=== PATIENT | female | born 2000 ===

== ENCOUNTER 2021-11-22 15:08 | Emergency (ER) | payer SELFPAY ==
--- NOTE | 2021-11-22 16:23 | Emergency Department Report ---
ED Female HPI - General Chief complaint: Vaginal Bleeding Stated complaint: 15WEEKS /BLEEDING Time Seen by Provider: 11/22/21 16:06 Source: patient, RN notes reviewed Mode of arrival: Ambulatory Limitations: No Limitations - History of Present Illness Initial comments: The patient was evaluated in the emergency department for symptoms described in the history of present illness. He/she was evaluated in the context of the global COVID-19 pandemic, which necessitated consideration that the patient might be at risk for infection with the virus that causes COVID-19. Institutional protocols and algorithms that pertain to the evaluation of patients at risk for COVID-19 are in a state of rapid change based on information released by regulatory bodies including the CDC and federal and state organizations. These policies and algorithms were followed during the patient's care in the emergency department. Please note that these policies, procedures and recommendations changed on a rapid basis. During the history and physical examination, I am chaperoned by VIOLETTA CARRION The patient is a 21-year-old female. She believes that she is approximately 15 weeks , and reports that her last menstrual period was sometime in July 2021. Including today, this is her third lifetime , she has martines ccessfully delivered once, and had 1 miscarriage. Today, she presents to the ER with a day and a half of spotting, associate with lower abdominal cramping. She denies trauma, and she denies additional symptoms. She does not currently have an outpatient [facility] physician. She has not used a significant amount of pads today. She has no other injuries or complaints MD Complaint: vaginal bleeding -: Gradual, days(s) Severity: moderate Quality: cramping Consistency: intermittent Improves with: none Worsens with: none Are you Now?: Yes Associated Symptoms: vaginal bleeding - Related Data Sexually active: Yes Previous Rx's Medication Instructions Recorded Last Taken Type Doxylamine Succinate/Vit B6 1 each PO QHS PRN #30 tablet. 11/22/21 Unknown Rx [Anne Ramirez 10-10 mg Tablet] Kerry Root [Kerry] 250 mg PO QID PRN #30 capsule 11/22/21 Unknown Rx Nitrofurantoin Lamb/M-Cryst 100 mg PO Q12HR #14 capsule 11/22/21 Unknown Rx [Macrobid CAP] Vit-Fe Fumar-FA [ 1 tab PO QDAY #30 tablet 11/22/21 Unknown Rx Vitamin] Allergies Allergy/AdvReac Type Severity Reaction Status Date / Time No Known Allergies Allergy Unverified 11/22/21 15:33 ED Review of Systems ROS: Stated complaint: 15WEEKS /BLEEDING Other details as noted in HPI Comment: All other systems reviewed and negative Genitourinary: as per HPI, other (Vaginal spotting) ED Past Medical Hx - Medications Home Medications: Home Medications Medication Instructions Recorded Confirmed Last Taken Type Doxylamine Succinate/Vit B6 1 each PO QHS PRN #30 tablet. 11/22/21 Unknown Rx [Diclegis Dr 10-10 mg Tablet] Kerry Root [Kerry] 250 mg PO QID PRN #30 capsule 11/22/21 Unknown Rx Nitrofurantoin Lamb/M-Cryst 100 mg PO Q12HR #14 capsule 11/22/21 Unknown Rx [Macrobid CAP] Vit-Fe Fumar-FA [ 1 tab PO QDAY #30 tablet 11/22/21 Unknown Rx Vitamin] ED Physical Exam - General Limitations: No Limitations General appearance: alert, in no apparent distress - Head Head exam: Present: atraumatic, normocephalic - Eye Eye exam: Present: normal appearance, EOMI. Absent: nystagmus - ENT ENT exam: Present: normal exam, normal orophraynx, mucous membranes moist, normal external ear exam - Neck Neck exam: Present: normal inspection, full ROM. Absent: tenderness, meningismus - Respiratory Respiratory exam: Present: normal lung sounds bilaterally. Absent: respiratory distress, wheezes, rales, rhonchi, stridor, decreased breath sounds - Cardiovascular Cardiovascular Exam: Present: regular rate, normal rhythm, normal heart sounds. Absent: bradycardia, tachycardia, irregular rhythm, systolic murmur, diastolic murmur, rubs, gallop - GI/Abdominal GI/Abdominal exam: Present: soft, normal bowel sounds. Absent: distended, tenderness, guarding, rebound, rigid, pulsatile mass - External exam: Present: normal external exam, other (Chaperoned by VIOLETTA CARRION). Absent: erythema, swelling, lesions, lacerations, bleeding - Extremities Exam Extremities exam: Present: normal inspection, full ROM, other (2+ pulses noted in the bilateral upper and lower extremities. There is no palpable cord. negative Homans sign. Muscular compartments are soft. The pelvis is stable.). Absent: pedal edema, calf tenderness - Back Exam Back exam: Present: normal inspection, full ROM. Absent: tenderness, CVA tenderness (R), CVA tenderness (L), paraspinal tenderness, vertebral tenderness - Neurological Exam Neurological exam: Present: alert, oriented X3, normal gait, other (No facial droop. Tongue midline. Extraocular movements intact bilaterally. Facial sensation intact to light touch in V1, V2, V3 distribution bilaterally. 5 and a 5 strength in 4 extremities. Sensation intact to light touch in 4 extremit ies.). Absent: motor sensory deficit - Psychiatric Psychiatric exam: Present: normal affect, normal mood - Skin Skin exam: Present: warm, dry, intact, normal color. Absent: rash ED Course Vital Signs 11/22/21 15:33 Temperature 98.7 F Pulse Rate 108 H Respiratory 16 Rate Blood Pressure 118/55 [Right] O2 Sat by Pulse 100 Oximetry - Reevaluation(s) Reevaluation #1: 11/22/21 17:13 Differential diagnosis, including but not limited to: Miscarriage, ectopic , subchorionic bleed, bacteriuria Assessment and plan: 21-year-old female, who is afebrile, with reassuring vital signs, with resolved tachycardia on my exam, with soft benign abdomen, without rebound, guarding or peritoneal signs, presenting today with a complaint that she is with vaginal spotting. Check appropriate laboratory studies, urinalysis, and obstetrics ultrasound. Reassess after acquisition of initial diagnostic studies. I discussed this with the patient. She is agreeable to this plan of care 11/22/21 18:14 Patient in no acute distress. Urinalysis demonstrates bacteriuria with pyuria. Patient is Rh+. Ultrasound confirms 16-week intrauterine . Discharged with outpatient follow-up Start vitamins, Macrobid, outpatient [facility]CH[facility] INFORMATION SPECIALIST follow-up. ED Medical Decision Making - Lab Data Result diagrams: 11/22/21 16:45 Vital Signs 11/22/21 15:33 Temperature 98.7 F Pulse Rate 108 H Respiratory 16 Rate Blood Pressure 118/55 [Right] O2 Sat by Pulse 100 Oximetry Lab Results 11/22/21 Range/Units 16:45 WBC 8.0 (4.5-11.0) K/mm3 RBC 4.06 (3.65-5.03) M/mm3 Hgb 12.2 (10.1-14.3) gm/dl Hct 36.0 (30.3-42.9) % MCV 89 (79-97) fl MCH 30 (28-32) pg MCHC 34 (30-34) % RDW 13.0 L (13.2-15.2) % Plt Count 289 (140-440) K/mm3 Lab Results 11/22/21 11/22/21 11/22/21 Range/Units 16:45 16:45 16:45 WBC 8.0 (4.5-11.0) K/mm3 RBC 4.06 (3.65-5.03) M/mm3 Hgb 12.2 (10.1-14.3) gm/dl Hct 36.0 (30.3-42.9) % MCV 89 (79-97) fl MCH 30 (28-32) pg MCHC 34 (30-34) % RDW 13.0 L (13.2-15.2) % Plt Count 289 (140-440) K/mm3 HCG, Quant 51582 H (0-4) mIU/mL Urine Color (Yellow) Urine Turbidity (Clear) Urine pH (5.0-7.0) Ur Specific [place] (1.003-1.030) Urine Protein (Negative) mg/dL Urine Glucose (UA) (Negative) mg/dL Urine Ketones (Negative) mg/dL Urine Blood (Negative) Urine Nitrite (Negative) Urine Bilirubin (Negative) Urine Urobilinogen (<2.0) mg/dL Ur Leukocyte Esterase (Negative) Urine WBC (Auto) (0.0-6.0) /HPF Urine RBC (Auto) (0.0-6.0) /HPF U Epithel Cells (Auto) (0-13.0) /HPF Urine Bacteria (Auto) (Negative) /HPF Urine Mucus /HPF Urine Yeast (Budding) /HPF Blood Type O POSITIVE Antibody Screen Negative 11/22/21 Range/Units Unknown WBC (4.5-11.0) K/mm3 RBC (3.65-5.03) M/mm3 Hgb (10.1-14.3) gm/dl Hct (30.3-42.9) % MCV (79-97) fl MCH (28-32) pg MCHC (30-34) % RDW (13.2-15.2) % Plt Count (140-440) K/mm3 HCG, Quant (0-4) mIU/mL Urine Color Yellow (Yellow) Urine Turbidity Clear (Clear) Urine pH 6.0 (5.0-7.0) Ur Specific [place] 1.019 (1.003-1.030) Urine Protein <15 mg/dl (Negative) mg/dL Urine Glucose (UA) Neg (Negative) mg/dL Urine Ketones Neg (Negative) mg/dL Urine Blood Lg (Negative) Urine Nitrite Neg (Negative) Urine Bilirubin Neg (Negative) Urine Urobilinogen < 2.0 (<2.0) mg/dL Ur Leukocyte Esterase Sm (Negative) Urine WBC (Auto) 37.0 H (0.0-6.0) /HPF Urine RBC (Auto) 8.0 (0.0-6.0) /HPF U Epithel Cells (Auto) 2.0 (0-13.0) /HPF Urine Bacteria (Auto) 1+ (Negative) /HPF Urine Mucus Few /HPF Urine Yeast (Budding) Few /HPF Blood Type Antibody Screen - Radiology Data Radiology results: report reviewed, image reviewed ULTRASOUND OBSTETRIC COMPLETE INDICATION / CLINICAL INFORMATION: Lower abdominal cramping. Clinical Gestational Age (GA) in weeks.days: 15.3 TECHNIQUE: Transabdominal. COMPARISON: None available. FINDINGS: NUMBER: Single PRESENTATION: cephalic PLACENTA: anterior and free of the os. MATERNAL ADNEXA: No significant abnormality. AMNIOTIC FLUID VOLUME: normal AMNIOTIC FLUID INDEX (YESSY) in cm (if measured): Not measured ANATOMY: organs (including the bladder, stomach, kidneys, heart, umbilical cord, diaphragm, cord insertion, spine and intracranial structures) are visualized and show no significant abnormality with the following exception(s): None. MEASUREMENTS: - Biparietal Diameter = 3.1 cm = 15.5 weeks.days - Head Circumference = 11.9 cm = 15.6 weeks.days - Abdominal Circumference = 10.8 cm = 16.5 weeks.days - Femur Length = 1.9 cm = 15.4 weeks.days - Estimated Weight (in grams, if calculated): 145 - Heart Rate (beats per minute): 150 ADDITIONAL FINDINGS: None. PERCENTILE ESTIMATED WEIGHT (if calculated): 84 AVERAGE ULTRASOUND AGE (AUA) in weeks.days = 16.0 IMPRESSION: 1. Single intrauterine with AUA of 16.0 weeks.days 2. No significant sonographic abnormality. Signer Name: Gilles Norton MD Signed: 11/22/2021 4:47 PM Workstation Name: [id number] Critical care attestation.: If time is entered above; I have spent that time in minutes in the direct care of this critically ill patient, excluding procedure time. ED Disposition Clinical Impression: History of vaginal bleeding, test positive, Bacteriuria with pyuria Disposition: HOME / SELF CARE / HOMELESS Is pt being admited?: No Does the pt Need Aspirin: No Condition: Good Instructions: Threatened Miscarriage Additional Instructions: Patient is found to be 16 weeks on ultrasound. Laboratory studies otherwise unremarkable, urinalysis demonstrates bacteriuria with pyuria. Take the antibiotics as directed. Avoid heavy lifting and strenuous physical activities. Do not engage in sex or sexual activities until cleared to do so by an INDEX EDITOR doctor. Follow-up with an outpatient INDEX EDITOR doctor soon as possible to initiate outpatient care. Take the vitamins on a daily basis. Take the nausea medications as needed. For the patient's convenience, local [facility] EDITOR physicians have been listed that she may follow-up with. Please return to the emergency room right away with new pain, worsened pain, migration of pain, projectile vomiting, change in mental status, confusion, inability tolerate liquid feeds, new, worsened or different symptoms not present on the initial emergency room evaluation Referrals: [facility] [Provider Group] - 3-5 Days [facility] [Provider Group] - 3-5 Days [facility] [Provider Group] - 3-5 Days Forms: Work/School Release Form(ED)
[2021-11-22 17:08] LABS: Hemoglobin 12.2 gm/dl (10.1-14.3); Mean Corpuscular HGB Conc 34 % (30-34); Mean Corpuscular Volume 89 fl (79-97); Platelet Count 289 K/mm3 (140-440); Red Blood Count 4.06 M/mm3 (3.65-5.03)
--- NOTE | 2021-11-22 17:51 | Ultrasound Report ---
ULTRASOUND OBSTETRIC COMPLETE INDICATION / CLINICAL INFORMATION: Lower abdominal cramping. Clinical Gestational Age (GA) in weeks.days: 15.3 TECHNIQUE: Transabdominal. COMPARISON: None available. FINDINGS: NUMBER: Single PRESENTATION: cephalic PLACENTA: anterior and free of the os. MATERNAL ADNEXA: No significant abnormality. AMNIOTIC FLUID VOLUME: normal AMNIOTIC FLUID INDEX (YESSY) in cm (if measured): Not measured ANATOMY: organs (including the bladder, stomach, kidneys, heart, umbilical cord, diaphragm, cord inserti on, spine and intracranial structures) are visualized and show no significant abnormality with the fo llowing exception(s): None. MEASUREMENTS: - Biparietal Diameter = 3.1 cm = 15.5 weeks.days - Head Circumference = 11.9 cm = 15.6 weeks.days - Abdominal Circumference = 10.8 cm = 16.5 weeks.days - Femur Length = 1.9 cm = 15.4 weeks.days - Estimated Weight (in grams, if calculated): 145 - Heart Rate (beats per minute): 150 ADDITIONAL FINDINGS: None. PERCENTILE ESTIMATED WEIGHT (if calculated): 84 AVERAGE ULTRASOUND AGE (AUA) in weeks.days = 16.0 IMPRESSION: 1. Single intrauterine with AUA of 16.0 weeks.days 2. No significant sonographic abnormality. Signer Name: Gilles Norton MD Signed: 11/22/2021 5:47 PM Workstation Name: [id number]
[2021-11-22 18:06] LABS: Bacteria,Urine 1+ /HPF (Negative); Bilirubin,Urine NEG (Negative); Blood,Urine LG (Negative); Color,Urine Yellow (Yellow); Mucus,Urine FEW /HPF; Protein,Urine <15 mg/dL mg/dL (Negative); Urobilinogen,Urine < 2.0 mg/dL (<2.0)
[2021-11-22 18:48] VITALS: BP 107/60
== END 2021-11-22 18:50 | disposition home or self-care (01) ==
LOC: ED 15:08
DX: O46.92 Antepartum hemorrhage, unspecified, second trimester (principal); Z32.01 Encounter for pregnancy test, result positive; Z3A.15 15 weeks gestation of pregnancy; O23.90 Unspecified genitourinary tract infection in pregnancy, unspecified trimester
CPT/HCPCS: 36415; 76805; 81001; 84702; 85027; 86850; 86900; 86901; 87086; 99284